=== PATIENT | female | born 1955 | race Caucasian/White ===

== ENCOUNTER → 2017-03-29 | Outpatient (CLI) | payer OTHER ==
[~2017-03-29] MED LIST: CALC1CRE2 TOP; CALC500C70 PO; DESO0.259 TD; DVN80 PO; FLAX OIL PO; HYG25 PO; MULT-513 PO; OMEP20TA PO; biotin PO
--- NOTE | 2017-03-29 16:21 | DIAGNOSTIC IMAGING REPORT ---
ULTRASOUND LEFT LOWER EXTREMITY VENOUS CLINICAL HISTORY: Left leg pain and swelling. COMPARISON STUDY: No priors. TECHNIQUE: Real-time, grayscale, and color Doppler sonography of the deep veins of the left lower extremity was performed from the inguinal crease to the calf. Compression and augmentation were utilized. FINDINGS: There is no sonographic evidence of deep venous thrombosis identified in the left lower extremity. The common femoral, superficial femoral, and popliteal veins are patent and normally compressible. The greater saphenous vein and the profunda femoris vein at the junction with the common femoral vein are clear. The visualized calf veins are patent. IMPRESSION: There is no sonographic evidence of deep venous thrombosis identified in the left lower extremity. Electronically signed by: Chaz Davison M.D. 03/29/2017 4:19 PM Dictated Date/Time: 03/29/2017 4:19 PM
== END | disposition home or self-care (01) ==
LOC: C.ULTRBC 15:37
DX: M79.662 Pain in left lower leg (principal); M79.89 Other specified soft tissue disorders

== ENCOUNTER → 2017-05-08 | Outpatient (CLI) | payer OTHER | END | disposition home or self-care (01) | LOC: C.CPL 13:52 | DX: S83.282D Other tear of lateral meniscus, current injury, left knee, subsequent encounter (principal); X58.XXXD Exposure to other specified factors, subsequent encounter ==

== ENCOUNTER → 2017-09-12 | Outpatient (CLI) | payer OTHER ==
[~2017-09-12] MED LIST changes: +APRE1TAB3 PO; +BIOT1TAB5 PO; +CALC-51 PO; -CALC1CRE2 TOP; -CALC500C70 PO; +DESO0.258 TOP; -DESO0.259 TD; +DILT90CA PO; -DVN80 PO; -FLAX OIL PO; +GLC/500 PO; +HYDR25TA4 PO; -HYG25 PO; +TRAM-10 PO; -biotin PO
--- NOTE | 2017-09-12 16:05 | DIAGNOSTIC IMAGING REPORT ---
CHEST 2 VIEWS ROUTINE CLINICAL HISTORY: PULMONARY DISEASE, HX OF CONGESTIVE HEART FAILURE PREOPERATIVE CHEST COMPARISON STUDY: No previous studies for comparison. FINDINGS: The cardiac and mediastinal contours are normal. There is no evidence of focal pulmonary consolidation. There is no evidence of failure. No pleural effusions are visualized.[ There is an area of presumed atelectasis/scarring at the right lung base. A 5 mm rounded opacity likely represents a vascular summation. Calcifications project over the superior margin the left scapula. IMPRESSION: 1. Focus of increased markings the right lung base likely atelectatic 2. 5 mm opacity at the right lung base, likely representing a vascular summation 3. No evidence of failure. No evidence of focal pulmonary consolidation. Electronically signed by: Bakari Norman M.D. 09/12/2017 4:03 PM Dictated Date/Time: 09/12/2017 4:02 PM
== END | disposition home or self-care (01) ==
LOC: C.RAD 15:44
DX: Z01.812 Encounter for preprocedural laboratory examination (principal); Z01.818 Encounter for other preprocedural examination; Z01.810 Encounter for preprocedural cardiovascular examination; R91.8 Other nonspecific abnormal finding of lung field

== ENCOUNTER 2017-10-05 06:08 | Inpatient (IN) | payer OTHER ==
[2017-09-11 14:08] VITALS: BMI 28.0
--- NOTE | 2017-09-11 14:44 | PAT Medication Instructions ---
Service Date Sep 11, 2017. Current Home Medication List Apremilast (Otezla), 1 TAB PO BID Biotin (Biotin), 1 TAB PO QAM Calcium Carbonate-Vitamin D (Calcium), 1 TAB PO BID Desoximetasone (Topicort), 1 APPLN TOP BID PRN for skin irritation Diltiazem Hcl (Diltiazem Hcl Er), 1 TAB PO QAM Hydrochlorothiazide (Hctz), 25 MG PO QAM Metformin Hcl (Glucophage), 500 MG PO BID Multivitamins/Minerals (Mvi With Minerals), 1 TAB PO QAM Omeprazole (Omeprazole), 20 MG PO DAILY PRN for Heartburn Tramadol (Ultram), 50 MG PO Q6 PRN for Pain Medication Instructions For Your Scheduled Surgery -Contact your prescriber for instructions for: Apremilast (Otezla), 1 TAB PO BID - Hold the following medications 24 hours prior to surgery: Desoximetasone (Topicort), 1 APPLN TOP BID PRN for skin irritation - Hold the following medications the morning of surgery: Biotin (Biotin), 1 TAB PO QAM Calcium Carbonate-Vitamin D (Calcium), 1 TAB PO BID Hydrochlorothiazide (Hctz), 25 MG PO QAM Metformin Hcl (Glucophage), 500 MG PO BID Multivitamins/Minerals (Mvi With Minerals), 1 TAB PO QAM - Take the following medications the morning of surgery with a sip of water: Diltiazem Hcl (Diltiazem Hcl Er), 1 TAB PO QAM Omeprazole (Omeprazole), 20 MG PO DAILY PRN for Heartburn (if needed) Tramadol (Ultram), 50 MG PO Q6 PRN for Pain (if needed, can be taken up to four hours before surgery) - Take the following medications as scheduled the night before surgery: Calcium Carbonate-Vitamin D (Calcium), 1 TAB PO BID If you have any questions please call us at [phone] or [phone] or [phone]
--- NOTE | 2017-09-29 15:00 | HISTORY & PHYSICAL EXAMINATION ---
DATE OF ADMISSION: 10/05/2017 CHIEF COMPLAINT: Left knee pain. HISTORY OF PRESENT ILLNESS: Ms. Mendoza is a 61-year-old female with a 6-month history of left knee pain. The patient had a fall which resulted in her increased pain. She has rating her pain a 10/10. She has pain with her daily activities. She has limited standing and walking tolerance. Pain is worse with weightbearing. The patient is ambulating with crutches. She has had prior arthroscopy. She has had injections, physical therapy, and Advil. She is now failing conservative treatment and would like to proceed with left knee replacement. PAST MEDICAL HISTORY: Hypertension, hyperlipidemia, diabetes with A1c of 8.1. She denies DVT or heart disease. PAST SURGICAL HISTORY: Tubal ligation, left knee arthroscopy, D&C and cataract extraction. SOCIAL HISTORY: The patient rarely drinks alcohol. She denies tobacco use. She lives in a single pedro home. 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 FAMILY HISTORY: Negative for DVT. MEDICATIONS: Hydrochlorothiazide 2 capsules daily, metformin 500 mg b.i.d., Topicort 0.05% gel, diltiazem 90 mg, and tramadol 50 mg. ALLERGIES: SULFA, PENICILLIN AND CLARITHROMYCIN. REVIEW OF SYSTEMS: See HPI. Ten other systems reviewed, all negative. PHYSICAL EXAMINATION: VITAL SIGNS: Height 5 feet 8 inches, weight 232 pounds, BMI 35. GENERAL: This is a well-developed, well-nourished female who is alert and oriented x3. Mood and affect are appropriate. HEENT: Normocephalic, atraumatic. Mucous membranes are moist and intact. NECK: Supple without lymphadenopathy. HEART: Regular rate and rhythm without murmurs, rubs or gallops. LUNGS: Clear to auscultation without wheezes or rhonchi. ABDOMEN: Soft and nontender. Bowel sounds are equal and active. EXTREMITIES: No ecchymosis, redness or warmth. She has varus deformity. Range of motion is from 0-110 degrees. She has no laxity. She is neurovascularly intact with +5/5 strength. X-RAY EXAMINATION: AP and lateral views show joint space narrowing and osteophyte formation. IMPRESSION: Posttraumatic degenerative joint disease, left knee. PLAN: The patient will be admitted for a left total knee arthroplasty. We will plan on aspirin for DVT prophylaxis. The patient has [employer] insurance. I recommend [facility] for home physical therapy, but it will depend on her insurance company.
[2017-10-05] VITALS (11 sets, daily range): BP systolic 116–153; BP diastolic 63–85; PULSE 68–80; TEMP 36.4–36.9; O2SAT 94–97; BMI 28.0
[~2017-10-05] VITALS: Ht 175.3 cm; Wt 85.9 kg
[~2017-10-05 06:08] MED LIST changes: +ACETAMINOPHEN 500 MG TAB PO SCH; +CEFAZOLIN 2000MG IV PUSH 15 ML IV SCH; +CLINDAMYCIN 600 MG/54 ML D5W 54 ML IV SCH; +DEXAMETHASONE 4 MG TAB PO SCH; +FAMOTIDINE 20 MG TAB PO SCH; +GABAPENTIN 600 MG PO SCH; +LACTATED RINGER'S 1000ML 1,000 ML IV SCH; +LACTATED RINGER'S 1000ML 500 ML IV SCH; +LINA1TAB PO; +METOCLOPRAMIDE HCL 10 MG TAB PO SCH; +ROPIVACAINE 5MG/ML 30 ML 150 MG, BUPIVACAINE 0.5% MPF INJ 30 ML, EpINEphrine HCL INJ 0.... INFIL SCH; +TRANEXAMIC ACID INJ 1,000 MG x 2 Bags IV SCH
[2017-10-05] MEDS ORDERED: BUPIVACAINE 0.25% 30 ML VIAL ONE (06:37)
[2017-10-05] MEDS ORDERED: BUPIVACAINE 0.5 % 5 MG/1 ML PF 10ML VIAL ONE (06:37)
[2017-10-05] MEDS ORDERED: MIDAZOLAM HCL 1 MG/ML 2ML VIAL ONE ×2 (06:41→07:54)
[2017-10-05] MEDS ORDERED: FENTANYL CITRATE INJ 50 MCG/1 ML 2 ML VIAL ONE (06:41)
[2017-10-05] MEDS ORDERED: PROPOFOL IV EMULSION 10 MG/ML 20 ML VIAL IV ONE ×2 (06:45→09:13)
--- NOTE | 2017-10-05 06:54 | History & Physical Bridge Note ---
H&P Re-Evaluation Bridge Note: I have examined the patient, reviewed the History & Physical and in the interval since the performance of the History & Physical I have noted the following changes of clinical significance: No changes noted
[2017-10-05] MEDS ORDERED: ORTHO JOINT ANESTHETIC ONE (07:09)
[2017-10-05] MEDS ORDERED: POVIDONE-IODINE OP SOLN 30 ML BTL ONE (07:09)
[2017-10-05] MEDS ORDERED: BACITRACIN 50000 UNIT VIAL ONE (07:09)
[2017-10-05] MEDS ORDERED: EpHEDrine SULFATE INJ 50 MG/ML AMP IV PRN (08:15)
[2017-10-05] MEDS ORDERED: KETOROLAC TROMETHAMINE 30 MG/ML VIAL IV. PRN (08:15)
[2017-10-05] MEDS ORDERED: ATROPINE SULFATE 0.1 MG/ML 5ML SYR IV PRN (08:15)
[2017-10-05] MEDS ORDERED: PHENYLEPHRINE 100MCG/ML 5ML SYR IV PRN (08:15)
[2017-10-05] MEDS ORDERED: ONDANSETRON INJ 2 MG/ML 2 ML VIAL IV PRN ×2 (08:15→10:00)
[2017-10-05] MEDS ORDERED: HYDROmorphone INJ 2 MG/ML SYR/VIAL IV PRN (08:15)
[2017-10-05] MEDS ORDERED: ONDANSETRON INJ 2 MG/ML 2 ML VIAL ONE (09:11)
--- NOTE | 2017-10-05 09:11 | [facility] Post Operative Brief Note ---
Immediate Operative Summary Operative Date Oct 05, 2017. Pre-Operative Diagnosis Post-traumatic degenerative joint disease, left knee Post-Operative Diagnosis Post-traumatic degenerative joint disease, left knee Procedure(s) Performed Left total knee arthroplasty, cemented; Left knee screw removal Surgeon Dr. Garber Biology Laboratory Assistant Surgeon(s) Surinder Dhillon PA-C Estimated Blood Loss 10cc Findings Consistent with Post-Op Diagnosis Specimens A: Left knee bone and tissue B: Removed hardware left knee Anesthesia Type MAC Spinal Regional Complication(s) none Disposition Accompanied Pt To Recover: no Disposition: Recovery Room / PACU
[2017-10-05] MEDS ORDERED: ALUMINUM/MAGNESIUM/SIMETH (MAALOX MAX) 30 ML UDC PO PRN (10:00)
[2017-10-05] MEDS ORDERED: HYDROmorphone INJ 0.5 MG/0.5 ML SYR IV PRN (10:00)
[2017-10-05] MEDS ORDERED: MAGNESIUM HYDROXIDE SUSP 30 ML UDC PO PRN (10:00)
[2017-10-05] MEDS ORDERED: TRAMADOL HCL 50 MG TAB PO PRN (10:00)
[2017-10-05] MEDS ORDERED: BISACODYL 10 MG SUPP PR PRN (10:00)
--- NOTE | 2017-10-05 10:16 | Anesthesiology Progress Note ---
Anesthesia Post Op Note Date & Time Oct 05, 2017 at 10:16 Vital Signs Pain Intensity: 0 Vital Signs Past 12 Hours Date Time Temp Pulse Resp B/P (MAP) Pulse Ox O2 Delivery O2 Flow Rate FiO2 10/05/17 10:10 75 22 115/65 94 Nasal Cannula 2 10/05/17 10:00 79 15 114/69 95 Nasal Cannula 2 10/05/17 09:51 36.4 90 16 98/66 96 Oxymask 10 10/05/17 06:51 36.9 78 18 152/85 97 Room Air Notes Mental Status: alert / awake / arousable, participated in evaluation Pt Amnestic to Procedure: Yes Nausea / Vomiting: adequately controlled Pain: adequately controlled Airway Patency, RR, SpO2: stable & adequate BP & HR: stable & adequate Hydration State: stable & adequate Anesthetic Complications: no major complications apparent
--- NOTE | 2017-10-05 10:24 | DIAGNOSTIC IMAGING REPORT ---
TWO VIEWS LEFT KNEE CLINICAL HISTORY: Postoperative examination. FINDINGS: AP and crosstable lateral portable views of the left knee are obtained. A left knee arthroplasty is in near anatomic alignment. There has been undersurface remodeling of the patella. No acute fracture is seen. There are expected postoperative changes around the knee including a surgical drain, soft tissue edema, and subcutaneous gas. IMPRESSION: Expected postoperative changes status post left knee arthroplasty. No acute fracture is seen. Electronically signed by: Chaz Davison M.D. 10/05/2017 10:23 AM Dictated Date/Time: 10/05/2017 10:22 AM
--- NOTE | 2017-10-05 10:38 | OPERATIVE REPORT ---
DATE OF OPERATION: 10/05/2017 PREOPERATIVE DIAGNOSIS: Osteoarthritis, left knee. POSTOPERATIVE DIAGNOSIS: Osteoarthritis, left knee. PROCEDURE: Left total knee arthroplasty. SURGEON: Henrique Garber MD SHEET CATCHER: KENRICK Julio ANESTHESIA: Spinal. COMPLICATIONS: None. OPERATION AND FINDINGS: Following induction of spinal anesthesia, the patient's left leg was prepped and draped in the usual sterile manner. Limb was exsanguinated with an Esmarch bandage and tourniquet was inflated to 350 mmHg. A longitudinal incision was made anteriorly. Subcutaneous tissue was sharply dissected. Electrocautery was used for hemostasis. Prepatellar bursa was incised and median parapatellar incision was performed. Patella was everted and the knee was flexed. Fat pad was removed to aid in visualization and the anterior and posterior cruciate ligaments were removed. The medial face of the tibia was cleared of soft tissue first with a Bovie and a Norman elevator. This tissue was retracted posteriorly using a blunt Hohmann. A Cerda retractor was used to expose the synovium above on the anterior aspect of the femur and this was removed down to bone. The PSI guide was placed on the distal femur and two pins were placed anteriorly and kept in position and two additional pins were placed distally and removed. The distal femoral cutting block was placed in position and the distal femoral cut was used in the +0 setting. Next, the cutting block was removed and the femoral 4 block was placed in the distal end of the femur. Care was taken to ensure appropriate external rotation and feeler gauge was used to ensure no notching would occur. The femoral block was centered on the distal femur and in the medial and lateral direction and was fixed using two bone screws. The gold pins were then removed. The oscillating saw was used to create the bone cuts and the distal femoral cutting block was removed and the reciprocating saw was used to further trim the femoral cuts as well as a deep in the area for the trochlear groove. Next, posterior condyle remnants were removed. Following this, a meniscal clamp and knife were utilized to remove the anterior portion of both medial and lateral meniscus. The proximal tibia PSI guide was placed into position and the proximal tibial cutting guide was screwed into position. The extra medullary alignment guide was utilized to ensure appropriate alignment. The proximal tibia was cut and the proximal tibial cutting block was removed and this bone fragment was removed. The appropriate guide was used to perform the notch cut on the distal femur and a lamina blower blast furnace and a cochlear knife were utilized to finish both medial and lateral meniscectomies to remove any remnants of the posterior or anterior cruciate ligaments. Following this, the distal femoral component was impacted into position and blunt Stan was used to sublux the tibia anteriorly. The proximal tibia was sized and a 4 tibial tray was chosen as the size to be used. This was put into position and appropriate external rotation and a double check with extramedullary alignment guide was performed. The canal for the tibial stem was prepared first with a 17 mm drill and then the punch and a mallet and the trial tibial poly was placed. A 11 was chosen the size to be used. It was brought to extension and the patella was prepared with the patellar reamer. A 36 component was chosen the size to be used. The trial component was placed and knee was taken through a full range of motion and there was found to be no lateral subluxation of the tibia. No lateral release was required. The trials were all removed. The final components were obtained and assembled. Cement was mixed. The knee was thoroughly irrigated and the ortho mix was injected about the knee joint. The final components were cemented into position. After thoroughly suctioning and drying the bone ends, all excess cement was removed. The knee was held in extension while the cement hardened. The wound was irrigated and closed over a Hemovac drain. #1 Vicryl was used to close the extensor mechanism. Subcutaneous tissues closed using 0 Dexon. Skin was closed with mukesh. Sterile dressing of Adaptic, 4 x 4's, sterile Webril, and Donny was applied. The patient tolerated the procedure well. Due to the complex nature of the procedure, the entire surgery was performed with the operational assistance of Surinder Dhillon PA-C. The judicial assistant, under direct supervision, was involved in the actual performance of all aspects of the surgical procedure including hemostasis, tissue retraction and incision, instrument management, patient positioning, and wound closure. During the procedure, both screws provided impedance and tibial placement. Both screws with washers were removed. I attest to the content of the Intraoperative Record and any orders documented therein. Any exception s are noted below.
[2017-10-05] MEDS ORDERED: GLUCAGON FOR INJ 1 MG VIAL SQ PRN (11:30)
[2017-10-05] MEDS ORDERED: GLUCOSE 40% GEL 15 GM TUBE PO PRN (11:30)
[2017-10-05] MEDS ORDERED: GLUCOSE 10 TABS/TUBE PO PRN (11:30)
[2017-10-05] MEDS ORDERED: DEXTROSE 50% 50 ML SYR IV PRN (11:30)
[2017-10-05] MEDS: SODIUM CHLORIDE 0.9% 1000ML 1,000 ML IV SCH ×2 (11:56→20:26)
[2017-10-05] MEDS ORDERED: PHARMACY GLYCEMIC MGMT CONSULT PRN (12:23)
[2017-10-05] MEDS ORDERED: INSULIN GLARGINE SOLOSTAR 100 UNITS/ML 3 ML PEN SC ONE (12:30)
[2017-10-05] MEDS ORDERED: [UNRECOGNIZED DRUG - CODE] PO (13:36)
[2017-10-05] MEDS: FERROUS GLUCONATE 324 MG TAB PO SCH ×2 (13:38→18:09)
[2017-10-05] MEDS: INSULIN ASPART 100 UNITS/ML 3 ML PEN SC SCH ×4 (13:47→23:58)
--- NOTE | 2017-10-05 14:12 | Pharmacy Progress Note ---
Glycemic Control Intl Consult Date of Service Oct 05, 2017. Scope Glycemic Pharmacist requested to be consulted by JACLYN Peters on 10/04 for glycemic control and to write orders per [facility] inpatient glycemic control protocol Objective Weight (Kilograms): 85.900 Accuchecks BSG (last 24hrs): Test 10/05/17 06:36 10/05/17 10:04 Bedside Glucose 204 mg/dl (70-90) 216 mg/dl (70-90) Recent Pertinent Medications Outpatient Anti-diabetic Regimen: * Tradjenta 5 mg qHS * Metformin 500 mg BID * A1c = 8.1 % date unknown - noted in H&P Risk Factors for Insulin Resistance: * Steroids: Decadron 8 mg po preop * Recent Surgery: POD #0 s/p L TKA * Diet: type 2 diabetes Assessment & Plan ASSESSMENT: * 61 y/o female with history of type 2 diabetes, fairly well controlled as per recent A1c * She is maintained on oral agents as an outpatient, which are typically held for admission and the use of SQ basal/bolus insulin is recommended * With preop Decadron (can SIGNIFICANTLY elevate BSGs) and baseline elevated BSG , will start the following on POD 0 * 1st basal dose to be full 24 hr dose based on insulin calc estimates using wt /stress of 2, then start BID dosing with a scale to provide additional if necessary * Novolog using CF/CR of patient's wt/stress of 3 PLAN FOR INPATIENT GLYCEMIC CONTROL: * Holding outpatient oral diabetes medications - consider resuming POD 1 or 2 depending on SCr/po intake * Basal insulin with LANTUS 30 units x 1 now, then as per following scale: * Hold for BSG < 140 * 10 units for BSG 140-180 * 20 units for BSG > 180 * Correctional Insulin with NOVOLOG per scale ACHS or Q6hrs while NPO + 0200 check * Goal Range: Low 110 mg/dL - High 140 mg/dL * Correction Factor: 20 mg/dL/unit * Nutritional / Prandial insulin per carb ratio of 1 unit per 6 grams CHO consumed * Please note that the plan above was derived based on current level of insulin resistance and hospital stress. These recommendations are appropriate for inpatient admission only. Plan of care upon discharge will need to be reassessed to avoid potential outpatient hypo/hyperglycemia. Thank you.
[2017-10-05] MEDS: ACETAMINOPHEN 500 MG TAB PO SCH ×2 (15:49→23:47)
[2017-10-05] MEDS: CLINDAMYCIN IV 600 MG in DEXTROSE 5% 50ML 50 ML IV SCH ×2 (15:51→23:48)
[2017-10-05] MEDS: TRAMADOL HCL 50 MG TAB PO PRN (17:16)
[2017-10-05] MEDS: OXYCODONE HCL IR 5 MG TAB (IMMEDIATE RELEASE) PO PRN ×2 (18:45→19:31)
[2017-10-05] MEDS ORDERED: INSULIN HUMAN REGULAR PER UNIT 5 UNITS in SYRINGE 9.9 ML IV STA (20:37)
[2017-10-05] MEDS: ASPIRIN 81 MG ECTAB PO SCH (20:57)
[2017-10-05] MEDS: SENNA 8.6 MG TAB PO SCH (20:57)
[2017-10-05] MEDS: DOCUSATE SODIUM 100 MG CAP PO SCH (20:57)
[2017-10-05] MEDS: INSULIN GLARGINE SOLOSTAR 100 UNITS/ML 3 ML PEN SC SCH (21:03)
[2017-10-06] MEDS: OXYCODONE HCL IR 5 MG TAB (IMMEDIATE RELEASE) PO PRN ×6 (01:22→22:29)
[2017-10-06] MEDS ORDERED: INSULIN ASPART 100 UNITS/ML 3 ML PEN SC ONE (02:00)
[2017-10-06 03:49] VITALS: BP 145/78; PULSE 78; TEMP 36.6; O2SAT 94
[2017-10-06] MEDS: INSULIN ASPART 100 UNITS/ML 3 ML PEN SC SCH ×5 (03:59→21:30)
[2017-10-06] MEDS: SODIUM CHLORIDE 0.9% 1000ML 1,000 ML IV SCH (05:47)
[2017-10-06 06:57] LABS: HEMATOCRIT 32.6 % (37-47); HEMOGLOBIN 11.1 g/dL (12.0-16.0); MEAN CELL VOLUME 85.8 fL (80-100); MEAN CORPUSCULAR HEMOGLOBIN 29.2 pg (25-34); MEAN PLATELET VOLUME 9.4 fL (7.4-10.4); PLATELET COUNT 236 K/uL (130-400); RED CELL DISTRIBUTION WIDTH CV 13.4 % (11.5-14.5); RED CELL DISTRIBUTION WIDTH SD 42.3 fL (36.4-46.3); WHITE BLOOD COUNT 13.58 K/uL (4.8-10.8)
[2017-10-06 07:20] VITALS: BP 152/96; PULSE 78; TEMP 36.4; O2SAT 92
[2017-10-06 07:24] LABS: CREATININE 0.78 mg/dl (0.60-1.20); POTASSIUM 3.7 mmol/L (3.5-5.1)
--- NOTE | 2017-10-06 07:59 | Anesthesiology Progress Note ---
Anesthesia Post Op Note Date & Time Oct 06, 2017 at 07:58 Vital Signs Pain Intensity: 3.0 Vital Signs Past 12 Hours Date Time Temp Pulse Resp B/P (MAP) Pulse Ox O2 Delivery O2 Flow Rate FiO2 10/06/17 07:20 36.4 78 18 152/96 (114) 92 Room Air 10/06/17 03:49 36.6 78 16 145/78 (100) 94 Room Air 10/06/17 00:00 Room Air 10/05/17 23:55 36.7 78 18 153/81 (105) 94 Room Air Notes Mental Status: alert / awake / arousable, participated in evaluation Pt Amnestic to Procedure: Yes Nausea / Vomiting: adequately controlled Pain: adequately controlled Airway Patency, RR, SpO2: stable & adequate BP & HR: stable & adequate Hydration State: stable & adequate Neuraxial Anesthesia: was administered, sensory block resolved Anesthetic Complications: no major complications apparent
--- NOTE | 2017-10-06 08:10 | Orthopedic Progress Note ---
Orthopedic Progress Note Date of Service Oct 06, 2017. Subjective Post OP Day: 1 Reports: feeling well Objective N/V intact, dressing C/D/I (Hemovac in place), toes mobile Date Time Temp Pulse Resp B/P (MAP) Pulse Ox O2 Delivery O2 Flow Rate FiO2 10/06/17 07:20 36.4 78 18 152/96 (114) 92 Room Air 10/06/17 03:49 36.6 78 16 145/78 (100) 94 Room Air 10/06/17 00:00 Room Air 10/05/17 23:55 36.7 78 18 153/81 (105) 94 Room Air 10/05/17 19:03 36.4 74 18 138/82 (100) 96 Room Air 10/05/17 15:40 Room Air 10/05/17 15:05 36.4 80 18 142/84 (103) 97 Nasal Cannula 3.0 10/05/17 13:51 73 12 128/72 (90) 97 Nasal Cannula 3.0 10/05/17 12:53 78 16 133/80 (97) 97 Nasal Cannula 2.0 10/05/17 11:54 68 12 119/78 (92) 96 Nasal Cannula 3.0 10/05/17 11:25 71 18 119/77 (91) 97 Nasal Cannula 2.0 10/05/17 10:56 94 Nasal Cannula 3.0 10/05/17 10:55 94 Nasal Cannula 3.0 10/05/17 10:52 36.8 72 14 116/63 (80) 94 Nasal Cannula 3.0 10/05/17 10:30 36.4 69 12 119/73 97 Nasal Cannula 2 10/05/17 10:20 71 16 112/69 95 Nasal Cannula 2 10/05/17 10:10 75 22 115/65 94 Nasal Cannula 2 10/05/17 10:00 79 15 114/69 95 Nasal Cannula 2 10/05/17 09:51 36.4 90 16 98/66 96 Oxymask 10 Laboratory Results 24 Hours: Test 10/06/17 06:45 Hematocrit 32.6 % Hemoglobin 11.1 g/dL Assessment & Plan Assessment: 61 yo female stable POD #1 s/p left TKA Plan: 1. Med management 2. DVT prophylaxis- ASA, SCDs 3. PT/OT 4. D/C planning- home w/ HH vs OPPT
[2017-10-06] MEDS: DILTIAZEM HCL 30 MG TAB PO SCH (08:40)
[2017-10-06] MEDS: TRAMADOL HCL 50 MG TAB PO PRN ×2 (08:40→21:30)
[2017-10-06] MEDS: FERROUS GLUCONATE 324 MG TAB PO SCH ×3 (08:41→18:21)
[2017-10-06] MEDS: DOCUSATE SODIUM 100 MG CAP PO SCH ×2 (08:41→21:31)
[2017-10-06] MEDS: HYDROCHLOROTHIAZIDE 25 MG TAB PO SCH (08:41)
[2017-10-06] MEDS: PANTOprazole SOD 40 MG TAB PO SCH (08:41)
[2017-10-06] MEDS: CEROVITE ADV FORMULA TAB PO SCH (08:41)
[2017-10-06] MEDS: MULTIVITAMIN TAB PO SCH (08:42)
[2017-10-06] MEDS: ASPIRIN 81 MG ECTAB PO SCH ×2 (08:42→21:31)
[2017-10-06] MEDS: ACETAMINOPHEN 500 MG TAB PO SCH ×2 (08:42→15:38)
[2017-10-06] MEDS: INSULIN GLARGINE SOLOSTAR 100 UNITS/ML 3 ML PEN SC SCH ×2 (08:50→21:29)
[2017-10-06] MEDS ORDERED: INSULIN GLARGINE SOLOSTAR 100 UNITS/ML 3 ML PEN SC ONE (11:00)
[2017-10-06 11:51] VITALS: BP 106/68; PULSE 62; TEMP 36.3; O2SAT 94
--- NOTE | 2017-10-06 14:29 | Pharmacy Progress Note ---
Pharmacy Glycemic Short Note 2 Date of Service Oct 06, 2017. OUTPATIENT ANTIDIABETIC REGIMEN: * Tradjenta 5 mg qHS * Metformin 500 mg BID * A1c = 8.1 % date unknown - noted in H&P ASSESSMENT: * 61 yr old T2DM female POD #1 s/p L-TKA. * Patient experienced post-op hyperglycemia likely due to stress of surgery and administration of dexamethasone pre-op. * Patient received 90 units of insulin on 10/06 * Fasting BSG of 160 mg/dL is above goal, therefore an additional dose of 10 units of Lantus was ordered for this morning. I anticipate patient needed about 15 units BID moving forward. * Post prandial BSGs are elevated. I anticipate improvement since steroid effect should be wearing off at this time, therefore I will only make a slight change to car ratio. PLAN FOR INPATIENT GLYCEMIC CONTROL: * Resume metformin starting with dinner today * Basal insulin * Lantus 0-10-15 units SQ BID * 10 units for BSG 120- 180, 15 units for BSG > 180 * Bolus insulin * NovoLog per scale ACHS or Q6hrs while NPO * Goal Range: Low 110 mg/dL - High 140 mg/dL * Correction Factor: 20 mg/dL/unit * Nutritional / Prandial insulin per carb ratio of 1 unit per 5 grams CHO consumed PLAN FOR DISCHARGE: * HbA1c 8.1 % per H&P * Recommend maximizing metformin dose (currently 500 mg PO BID) * may increase by 500 mg per week as tolerated to goal of 2000 mg PO BID * administer with food to limit GI upset
[2017-10-06 15:03] VITALS: Ht 175.3 cm; Wt 85.9 kg
[2017-10-06 15:21] VITALS: BP 149/88; PULSE 81; TEMP 36.6; O2SAT 94
[2017-10-06] MEDS: METFORMIN HCL 500 MG TAB PO SCH (18:21)
[2017-10-06] MEDS: SENNA 8.6 MG TAB PO SCH (21:32)
[2017-10-06 23:16] VITALS: BP_SYST 160; BP_SYST 173; BP_DIAS 82; BP_DIAS 96; PULSE 75; TEMP 36.8; O2SAT 98
[2017-10-07] VITALS: BP 166/76; PULSE 77
[2017-10-07] MEDS: ACETAMINOPHEN 500 MG TAB PO SCH ×2 (00:36→07:30)
[2017-10-07] MEDS: TRAMADOL HCL 50 MG TAB PO PRN ×3 (01:39→14:08)
[2017-10-07] MEDS: OXYCODONE HCL IR 5 MG TAB (IMMEDIATE RELEASE) PO PRN ×2 (04:31→11:33)
[2017-10-07] MEDS: PANTOprazole SOD 40 MG TAB PO SCH (07:30)
[2017-10-07] MEDS: HYDROCHLOROTHIAZIDE 25 MG TAB PO SCH (07:31)
[2017-10-07] MEDS: ASPIRIN 81 MG ECTAB PO SCH (07:31)
[2017-10-07] MEDS: FERROUS GLUCONATE 324 MG TAB PO SCH ×2 (07:32→12:51)
[2017-10-07] MEDS: DOCUSATE SODIUM 100 MG CAP PO SCH (07:32)
[2017-10-07] MEDS: CEROVITE ADV FORMULA TAB PO SCH (07:32)
[2017-10-07] MEDS: MULTIVITAMIN TAB PO SCH (07:32)
[2017-10-07] MEDS: DILTIAZEM HCL 30 MG TAB PO SCH (07:32)
[2017-10-07] MEDS: METFORMIN HCL 500 MG TAB PO SCH (07:32)
[2017-10-07] MEDS: INSULIN GLARGINE SOLOSTAR 100 UNITS/ML 3 ML PEN SC SCH (07:33)
[2017-10-07 07:35] VITALS: BP 165/98; PULSE 89; TEMP 36.8; O2SAT 95
[2017-10-07] MEDS: INSULIN ASPART 100 UNITS/ML 3 ML PEN SC SCH ×2 (07:37→12:54)
--- NOTE | 2017-10-07 11:19 | Orthopedic Progress Note ---
Orthopedic Progress Note Date of Service Oct 07, 2017. Subjective Post OP Day: 2 Reports: feeling well, Denies: complaints, chest pain, SOB, nausea / vomiting, light headedness Objective calves soft nontender, N/V intact, dressing C/D/I Date Time Temp Pulse Resp B/P (MAP) Pulse Ox O2 Delivery O2 Flow Rate FiO2 10/07/17 07:35 36.8 89 18 165/98 (120) 95 Room Air 10/07/17 07:30 Room Air 10/07/17 00:00 Room Air 10/07/17 00:00 77 166/76 (106) 10/06/17 23:16 36.8 75 18 173/96 (121) 98 Room Air 160/82 (108) 10/06/17 15:29 Room Air 10/06/17 15:21 36.6 81 18 149/88 (108) 94 Room Air 10/06/17 11:51 36.3 62 18 106/68 (81) 94 Room Air Assessment & Plan Assessment: 61 yo female stable POD #2 s/p left TKA Plan: 1. Med management 2. DVT prophylaxis- ASA, SCDs 3. PT/OT 4. D/C planning- home w/ HH vs OPPT She is doing well. We should be able to DC her today.
[2017-10-07 14:13] VITALS: BP 165/98; PULSE 89; TEMP 36.8; O2SAT 95
[2017-10-07] MEDS ORDERED: ACET-24 PO (14:19)
[2017-10-07] MEDS ORDERED: RXC5 PO (14:19)
[2017-10-07] MEDS ORDERED: ONDA8TAB12 PO (14:19)
[2017-10-07] MEDS ORDERED: ASPI-320 PO (14:19)
[2017-10-07] MEDS ORDERED: CLC100 PO (14:19)
--- NOTE | 2017-10-07 14:20 | Discharge Instructions ---
Discharge Instructions Date of Service Oct 07, 2017. Admission Reason for Admission: Left Knee Osteoarthritis, Retained Hardware Discharge Discharge Diagnosis / Problem: left total knee replacement Discharge Goals Goal(s): Decrease discomfort, Improve function, Increase independence Activity Recommendations Activity Limitations: as noted below Weightbearing Status: Left weightbearing (as tolerated) . Instructions / Follow-Up Instructions / Follow-Up ACTIVITY RECOMMENDATIONS: SELF CARE INSTRUCTIONS AFTER TOTAL KNEE REPLACEMENT A. You may need to continue a physical therapy program after discharge from the hospital. There are several options available to you. Your doctor will assist you in selecting the best one for you. 1. An out-patient facility 2 to 3 times a week for therapy or home therapy. 2. Continue working on all exercises taught to you in the hospital. Your goals should be to increase bending of your knee to 90 degrees and beyond and to fully straighten your knee. B. You may progress at your own pace from walking with a walker or crutches to a cane; then to no assistive devices. C. Make walking a part of your daily routine. Be up as much as comfortable with rest periods throughout the day. Rest with leg elevation is very important. Use the ice wrap frequently for the first 3-4 weeks. D. There are no restrictions on activities. You may ride in a car, shop, participate in ocular pathologist and all social activities. E. Wear the long elastic stockings (ISABEL hose) 20 hours a day for 2 weeks after surgery. They can be removed several times a day for laundering and for a bath. F. You may shower, no tub baths until cleared by your doctor. SPECIAL CARE INSTRUCTIONS: VERY IMPORTANT TO READ AND REVIEW A. There are a few signs you need to watch for after you are home. Call [facility] if you notice any of the followin. Increased severe knee pain. Some pain is expected especially when you exercise. 2. Increased swelling in your leg or knee; pain or swelling of the calf muscle in either lower leg. 3. Any fluid drainage from the incision. 4. Shortness of breath or chest pain. B. Please call [facility] at if you have any concerns or questions about your operation or recovery. The doctor or his nurse will return your call promptly. C. You must take antibiotics before dental work, bladder, bowel or other surgery. Your doctor will provide you with a permanent care to carry describing this precaution. IMPORTANT: * REMEMBER TO TAKE ASPIRIN, 81 MG, TWICE DAILY FOR 4 WEEKS UNLESS OTHERWISE DIRECTED. THIS IS YOUR BLOOD THINNER. * HIGH RISK PATIENTS MAY BE PRESCRIBED A STRONGER BLOOD THINNER. THIS WILL BE PROVIDED AT DISCHARGE. * CALL IF INCREASED PAIN, REDNESS, DRAINAGE OR FEVER GREATER THAT 101. * WEAR ISABEL HOSE 20 HOURS PER DAY FOR 2 WEEKS. * YOU MAY HAVE A LARGE BAND-AID LIKE DRESSING (SILVERON). THIS WILL REMAIN ON YOUR INCISION FOR 7 DAYS, THEN CAN BE REMOVED. IF INCISION IS LEAKING THROUGH DRESSING, CALL THE OFFICE . Zip Skin Closure You may have a Zipline Closure System. As noted below, this keeps your incision closed. Change the dressing daily. Keep the wound covered with a dressing as it has the potential to snag on your clothing. The Zipline will remain on for a total of 2 weeks. Do not remove it! You will be given instructions by nursing staff at the time of discharge to care for your Zip Closure System. This devices uses plastic straps to keep your incision closed and protected throughout your recovery. If you have any questions please refer to these instructions first. FOLLOW UP VISIT: If appointment is not already scheduled: Please call [facility] to make a follow-up appointment for 2 weeks after your surgery at . Current Hospital Diet Patient's current hospital diet: Diabetes Type 2 Diet Discharge Diet Recommended Diet: Diabetes Type 2 Diet Procedures Procedures Performed: Left total knee arthroplasty, cemented; Left knee screw removal Pending Studies Studies pending at discharge: no Medical Emergencies . Who to Call and When: Medical Emergencies: If at any time you feel your situation is an emergency, please call 911 immediately. . Non-Emergent Contact Non-Emergency issues call your: Primary Care Provider, Surgeon . "Provider Documentation" section prepared by Angelo Lyman. . [place] Drug Monitoring Program Search Results: patient reviewed within database, no issues identified
--- NOTE | 2017-10-09 16:21 | DISCHARGE SUMMARY ---
DISCHARGE DIAGNOSIS: Degenerative joint disease, left knee. SECONDARY DIAGNOSES: Hypertension, hyperlipidemia, diabetes mellitus. CONSULTS: None. COMPLICATIONS: None. PROCEDURES: Left total knee arthroplasty performed by Dr. Garber on 10/05/2017. BRIEF HISTORY: As dictated in the history and physical. HOSPITAL SUMMARY: The patient was admitted on the above date and had the above noted surgery performed which she tolerated well. On the first postoperative day, she was feeling well and had no complaints, neurovascular was intact. Dressing was clean, dry, and intact. Toes were mobile. Vital signs were stable. She was afebrile, and hemoglobin was 11.1. She was started on physiotherapy protocol and continued on DVT prophylaxis and pain management. Was planning for outpatient PT. By her second postoperative day, she was feeling well and had no complaints. Calves were soft and nontender. Neurovascular intact. Dressings were clean, dry, and intact. Vital signs were stable, and she was afebrile. She was progressing with physical therapy and was felt she could be discharged to home. For further review, please see chart. Lab and x-ray data as per chart. DISCHARGE INSTRUCTIONS: Patient was discharged to home in satisfactory condition on 10/07/2017. DIET: Diabetic. ACTIVITY: Follow TKA instruction sheets and special care instructions. Weightbearing as tolerated, left lower extremity. Follow up with Dr. Garber in 2 weeks. Patient to call for appointment if one has not been made for you. DISCHARGE MEDICATIONS: Acetaminophen 1000 mg p.o. q.8 h., aspirin 81 mg p.o. b.i.d. for 30 days, Colace 100 mg p.o. b.i.d. for 10 days, Zofran 8 mg p.o. q.8 h. p.r.n. nausea, oxycodone 5-10 mg p.o. q.4 h. p.r.n. pain and resume home meds as listed.
== END 2017-10-07 14:50 | disposition home health service (06) | DRG 470 ==
LOC: C.ACU 06:08 → C.MSN 10:02 → ENRESERV 10:30
PROC: 0SRD0J9 Replacement of Left Knee Joint with Synthetic Substitute, Cemented, Open Approach (ICD-10-PCS; principal; 2017-10-05 08:15)
PROC: 0SPD04Z Removal of Internal Fixation Device from Left Knee Joint, Open Approach (ICD-10-PCS; principal; 2017-10-05 08:15)
DX: M17.32 Unilateral post-traumatic osteoarthritis, left knee (principal); I10 Essential (primary) hypertension; E78.5 Hyperlipidemia, unspecified; E11.9 Type 2 diabetes mellitus without complications; Z98.51 Tubal ligation status; Z98.49 Cataract extraction status, unspecified eye; Z88.2 Allergy status to sulfonamides; Z88.0 Allergy status to penicillin; Z88.1 Allergy status to other antibiotic agents

== ENCOUNTER 2022-04-16 12:05 | Observation (INO) ==
[2022-04-16 13:16] LABS: Basophils # (auto) 0.03 K/uL (0-0.2); Basophils % (auto) 0.2 %; Eosinophils # (auto) 0.05 K/uL (0-0.50); Eosinophils % (auto) 0.4 %; Hematocrit (blood only) 39.1 % (34.1-44.9); Hemoglobin 13.7 g/dl (12.0-16.0); Immature Granulocytes # (auto) 0.05 K/uL (0.00-0.02); Immature Granulocytes % (auto) 0.4 %; Lymphocytes # (auto) 0.79 K/uL (1.2-3.4); Lymphocytes % (auto) 5.7 %; Mean Corpuscular Hemoglobin 29.8 pg (25.0-34.0); Mean Corpuscular Volume 85.2 fL (80.0-100.0); Mean Platelet Volume 9.9 fL (9.4-12.3); Monocytes # (auto) 0.81 K/uL (0.24-0.82); Monocytes % (auto) 5.8 %; Neutrophils # (auto) 12.19 K/uL (1.4-6.5); Neutrophils % (auto) 87.5 %; Platelet Count 326 K/uL (130-400); RDW Coefficient of Variation 13.4 % (11.5-14.5); RDW Standard Deviation 41.7 fL (36.4-46.3); Red Blood Count 4.59 M/uL (3.93-5.22); White Blood Count 13.92 K/ul (4.8-10.8)
[2022-04-16 13:43] LABS: Alanine Aminotransferase 14 U/L (7-52); Albumin Globulin Ratio 1.1 (0.9-2); Albumin Level 3.9 gm/dl (3.4-5.0); Alkaline Phosphatase 84 U/L (34-104); Anion Gap 10 (3-11); Aspartate Aminotransferase 11 U/L (13-39); Bilirubin,Total 0.5 mg/dl (0.2-1.0); Blood Urea Nitrogen 15 mg/dl (6-23); Calcium 9.3 mg/dl (8.5-10.1); Carbon Dioxide 25 mmol/L (21-32); Chloride 101 mmol/L (98-107); Est GFR (African American) 110.9 ml/min; Est GFR (Non-African American) 95.7 ml/min; Globulin 3.7 gm/dl (2.5-4.0); Glucose 163 mg/dl (70-99(Fasting)); Lipase 29 U/L (11-82); Potassium 3.5 mmol/L (3.5-5.1); Sodium 136 mmol/L (136-145); Total Protein 7.6 gm/dl (6.0-8.3)
--- NOTE | 2022-04-16 14:11 | CT Scan Report ---
CT abd pelvis wo con CLINICAL HISTORY: rt sided abd pain TECHNIQUE: Helical axial images of the abdomen and pelvis were obtained. Automated dose lowering tech niques and/or adjustment according to patient size were utilized for this exam. This exam was perfor med without intravenous contrast. CT DOSE: 678.37 mGy.cm COMPARISON: None available at the time of this dictation. FINDINGS: Lower chest: Bibasilar atelectasis versus scarring is seen. Liver: Unremarkable. No focal lesions are seen. Gallbladder and biliary tree: Patient is status post cholecystectomy. No intra- or extrahepatic bilia ry ductal dilation. Pancreas: Unremarkable, no focal lesions. Spleen: Unremarkable. Adrenals: Unremarkable. Kidneys and ureters: A left renal cyst is seen. Nonobstructive nephrolithiasis is seen. Bladder: Unremarkable. Reproductive organs: Unremarkable. Bowel: Appendiceal thickening and fat stranding is seen. The appendix measures 11 mm in diameter and there is an appendicolith.. No free air or abscess is seen. Diverticulosis is seen without diverticul itis. Lymph nodes Retroperitoneal: Unremarkable. Pelvic: Unremarkable. Mesenteric: Unremarkable. Peritoneum: Fat stranding is seen in the right lower quadrant. No pneumoperitoneum is seen. Vessels: Atherosclerotic calcifications are seen. Abdominal wall: Unremarkable. Bones: A right hip total arthroplasty is seen. Degenerative changes are seen in the spine. Anterior w edge deformity in the L1 vertebral body is likely chronic. IMPRESSION: Acute appendicitis without evidence of perforation or abscess. ACT 112: Negative or not required by law. Electronically signed by: Nabil Hairston M.D. 04/16/2022 2:09 PM
[2022-04-16] MEDS ORDERED: HYDROmorphone INJ 0.5 MG/0.5 ML SYR IV STA (14:23)
--- NOTE | 2022-04-16 15:00 | Emergency Department Note ---
History of Present Illness General Chief complaint: Abdominal Pain Stated complaint: ABD PAIN,NAUSEA Time Seen by Provider: 04/16/22 13:06 History of Present Illness Maximum Pain Intensity: 10 66-year-old female presents to the ED with a chief complaint of lower abdominal pain. The patient states that it started on the left side around 9 PM last night. She states that it has moved towards the right side as well.She has been nauseated all day. She only ate 2 crackers at 9 AM this morning. Denies any vomiting. No other complaints. Home Medications Medication Instructions Recorded Confirmed Type apremilast 30 mg tablet (Otezla) 30 mg PO BID 04/17/18 04/22/18 History biotin 1,000 mcg chewable tablet 1,000 mcg PO DAILY 04/17/18 04/22/18 History calcium carbonate 500 mg-vitamin 1 tab PO BID 04/17/18 04/22/18 History D3 10 mcg (400 unit) tablet (Calcium 500 With D) chlorthalidone 25 mg tablet 25 mg PO DAILY 04/17/18 04/22/18 History flaxseed oil 1,000 mg capsule 1,000 mg PO DAILY 04/17/18 04/22/18 History linagliptin 5 mg tablet 5 mg PO DAILY 04/17/18 04/22/18 History metformin 500 mg tablet 500 mg PO BID 04/17/18 04/22/18 History multivitamin 1 tab PO DAILY 04/17/18 04/22/18 History Allergies Allergy/AdvReac Type Severity Reaction Status Date / Time clarithromycin Allergy Intermediate RASH, Verified 04/22/18 17:01 TREMORS, SHAKINESS Egg Derived Allergy Intermediate Rash Verified 04/22/18 13:23 atenolol Allergy Unknown cp Verified 04/22/18 13:23 elevated bp muscles contract/spasm valsartan Allergy Unknown unable to Verified 04/22/18 13:23 stand,bad headache diphenhydramine AdvReac Intermediate ANTIHISTAMINES Verified 04/22/18 13:23 - ELEVATE BP morphine AdvReac Intermediate LOW BP, Verified 04/22/18 13:23 "CARDIAC PROBLEMS" Sulfa (Sulfonamide AdvReac Intermediate hypertension, Verified 04/22/18 17:01 Antibiotics) shakiness Penicillins AdvReac Mild STIFF Verified 04/22/18 13:23 NECK, SEVERE NAUSEA Past Med/Surg History Medical History CVA (cerebral vascular accident) Diabetes DM type 2 (diabetes mellitus, type 2) Dyslipidemia Hyperlipidemia Hypertension Hypertension Psoriasis Surgical History H/O sinus surgery H/O tubal ligation History of cholecystectomy History of total left knee replacement History of total right hip replacement Family History Mother Breast cancer Diabetes Social History Smoking Status: Never smoker Hx Alcohol Use: Yes Alcohol type: wine and hard liquor Hx Substance Use: No Preferred Language: Upper Sorbian Communication Ability: Effective Visual Impairment: No Limitations Manufacturing Technology Professor Required: No Beliefs That Will Affect Care: None marital status: Current Living Situation: Spouse Feels Safe at Home: Yes Assistive Devices: None Review of Systems A total of 10 systems reviewed and were otherwise negative Physical Exam Vital Signs Vital Signs - 24 hr 04/16/22 12:15 Temperature 37.0 C Temperature Source Oral Pulse Rate 96 H Pulse Rhythm Regular Pulse Strength Normal Respiratory Rate 16 Respiratory Effort / Characteristics Non-Labored Spontaneous Respiratory Depth Normal Respiratory Pattern Regular Blood Pressure 129/83 Blood Pressure Mean 98 Blood Pressure Position Sitting Pulse Oximetry 96 Oxygen Delivery Method Room Air Sepsis Recent Fever Within 48 Hours No Sepsis New/Unexplained Change in Mental Status No Sepsis Action Taken by Nursing No Action Required CONSTITUTIONAL/VITAL SIGNS: Reviewed / noted above. GENERAL: Non-toxic in appearance. INTEGUMENTARY: Warm, dry, and [place]. HEAD: Normocephalic. EYES: without scleral icterus or trauma. ENT/OROPHARYNX: clear and moist. LYMPHADENOPATHY/NECK: Is supple without lymphadenopathy or meningismus. RESPIRATORY: Clear to auscultation bilaterally. No increased work of breathing. CARDIOVASCULAR: Regular rate and rhythm. GI/ABDOMEN: Soft and tender diffusely in the lower abdomen.. No organomegaly or pulsatile mass. EXTREMITIES: Warm and well perfused. BACK: No CVA tenderness. NEUROLOGICAL: Intact without focal deficits. PSYCHIATRIC: normal affect. MUSCULOSKELETAL: Normally developed with good muscle tone. TRIAGE NURSING DOCUMENTATION REVIEWED. Course Administered Medications Discontinued Medications Hydromorphone HCl (Hydromorphone Inj 0.5 Mg/0.5 Ml Syr) 0.5 mg IV NOW STA Stop: 04/16/22 14:24 Last Admin: 04/16/22 14:37 Dose: 0.5 mg Documented By: [id number] Medical Decision Making Differential Diagnosis Differential considered: pancreatitis, hepatitis, acute cholecystitis, AAA, UTI, pyelonephritis, kidney stones, appendicitis, diverticulitis, shingles, bowel obstruction, mesenteric ischemia, intussusception,hernia, Medical Records Attestation: I reviewed the patient's medical records. Home Medications Current Medication List: was personally reviewed by me Laboratory Data Attestation: I reviewed the patient's lab results. Result diagrams: 04/16/22 12:28 04/16/22 12:28 Lab Results 04/16/22 04/16/22 Range/Units 12: 12:28 WBC 13.92 H (4.8-10.8) K/ul RBC 4.59 (3.93-5.22) M/uL Hgb 13.7 (12.0-16.0) g/dl Hct 39.1 (34.1-44.9) % MCV 85.2 (80.0-100.0) fL MCH 29.8 (25.0-34.0) pg MCHC 35.0 (32.0-36.0) g/dL RDW Std Deviation 41.7 (36.4-46.3) fL RDW Coeff of William 13.4 (11.5-14.5) % Plt Count 326 (130-400) K/uL MPV 9.9 (9.4-12.3) fL Immature Gran % (Auto) 0.4 % Neut % (Auto) 87.5 % Lymph % (Auto) 5.7 % [place] % (Auto) 5.8 % Eos % (Auto) 0.4 % Baso % (Auto) 0.2 % Neut # (Auto) 12.19 H (1.4-6.5) K/uL Lymph # (Auto) 0.79 L (1.2-3.4) K/uL Woodward # (Auto) 0.81 (0.24-0.82) K/uL Eos # (Auto) 0.05 (0-0.50) K/uL Baso # (Auto) 0.03 (0-0.2) K/uL Immature Gran # (Auto) 0.05 H (0.00-0.02) K/uL Sodium 136 (136-145) mmol/L Potassium 3.5 (3.5-5.1) mmol/L Chloride 101 (98-107) mmol/L Carbon Dioxide 25 (21-32) mmol/L Anion Gap 10 (3-11) BUN 15 (6-23) mg/dl Creatinine 0.60 (0.6-1.2) mg/dl Est Cr Clr Drug Dosing Not Reportable Est GFR ( Amer) 110.9 ml/min Est GFR (Non-Af Amer) 95.7 ml/min BUN/Creatinine Ratio 25.0 H (10-20) Glucose 163 H (70-99(Fasting)) mg/dl Calcium 9.3 (8.5-10.1) mg/dl Total Bilirubin 0.5 (0.2-1.0) mg/dl AST 11 L (13-39) U/L ALT 14 (7-52) U/L Alkaline Phosphatase 84 (34-104) U/L Total Protein 7.6 (6.0-8.3) gm/dl Albumin 3.9 (3.4-5.0) gm/dl Globulin 3.7 (2.5-4.0) gm/dl Albumin/Globulin Ratio 1.1 (0.9-2) Lipase 29 (11-82) U/L Imaging Data Radiologist's Impression: Abdomen/Pelvis CT 04/16/22 13:04 CT abd pelvis wo con CLINICAL HISTORY: rt sided abd pain TECHNIQUE: Helical axial images of the abdomen and pelvis were obtained. Automated dose lowering techniques and/or adjustment according to patient size were utilized for this exam. This exam was performed without intravenous contrast. CT DOSE: 678.37 mGy.cm COMPARISON: None available at the time of this dictation. FINDINGS: Lower chest: Bibasilar atelectasis versus scarring is seen. Liver: Unremarkable. No focal lesions are seen. Gallbladder and biliary tree: Patient is status post cholecystectomy. No intra- or extrahepatic biliary ductal dilation. Pancreas: Unremarkable, no focal lesions. Spleen: Unremarkable. Adrenals: Unremarkable. Kidneys and ureters: A left renal cyst is seen. Nonobstructive nephrolithiasis is seen. Bladder: Unremarkable. Reproductive organs: Unremarkable. Bowel: Appendiceal thickening and fat stranding is seen. The appendix measures 11 mm in diameter and there is an appendicolith.. No free air or abscess is seen. Diverticulosis is seen without diverticulitis. Lymph nodes Retroperitoneal: Unremarkable. Pelvic: Unremarkable. Mesenteric: Unremarkable. Peritoneum: Fat stranding is seen in the right lower quadrant. No pneumoperitoneum is seen. Vessels: Atherosclerotic calcifications are seen. Abdominal wall: Unremarkable. Bones: A right hip total arthroplasty is seen. Degenerative changes are seen in the spine. Anterior wedge deformity in the L1 vertebral body is likely chronic. IMPRESSION: Acute appendicitis without evidence of perforation or abscess. ACT 112: Negative or not required by law. Electronically signed by: Nabil Hairston M.D. 04/16/2022 2:09 PM MDM Narrative 66-year-old female presents with abdominal pain starting last night around [address] scan today shows a findings suggesting acute appendicitis. White count is mildly elevated. Chemistry panel was unremarkable. The patient will be seen by Dr. Saldaña from surgery service. She was given 0.5 mg IV Dilaudid for her discomfort. Impression & Plan Acute appendicitis Discharge Plan Visit Data Chief Complaint: Abdominal Pain Stated Complaint: ABD PAIN,NAUSEA ED Provider: Sam Garza Discharge Problem: Acute appendicitis Patient Disposition: Being Evaluated by Surgeon Forms Stand Alone Forms: [facility] Prescriptions Prescriptions: No Action chlorthalidone 25 mg Tablet 25 mg PO DAILY linagliptin 5 mg Tablet 5 mg PO DAILY metformin 500 mg Tablet 500 mg PO BID apremilast [Otezla] 30 mg Tablet 30 mg PO BID flaxseed oil 1,000 mg Capsule 1,000 mg PO DAILY multivitamin Tablet 1 tab PO DAILY biotin 1,000 mcg Tablet,Chewable 1,000 mcg PO DAILY calcium carbonate-vitamin D3 [Calcium 500 With D] 500 mg(1,250mg) -400 unit Tablet 1 tab PO BID Referrals Referrals: Ada Phipps MD [Primary Care Provider] -
[2022-04-16] MEDS ORDERED: PIPERACILLIN/TAZOBACTAM 4.5 GM/120 ML BAG IV ONE (15:18)
[2022-04-16] MEDS ORDERED: PIPERACILLIN/TAZOBACTAM 4.5 GM/120ML D5W IV ONE (15:26)
--- NOTE | 2022-04-16 15:35 | History & Physical Report ---
Date of Service April 16, 2022 Assessment & Plan (1) Acute appendicitis: Plan: Patient has classical symptoms for acute appendicitis further for documented by CT scan which showed acutely inflamed appendix nonruptured Treatment of acute appendicitis was explained to the patient including nonoperative management with antibiotics although not recommended completely of anyone older than 40 years old for was like incidence of carcinoma and cycling recurrence rate as high as 20% x 4 she wants like to proceed for laparoscopic appendectomy possible open risk and complication were explained to patient including bleeding infection injury to other organs Plan Surgery was notified and booked for laparoscopic appendectomy possible open Antibiotics have been ordered preoperatively Sequential compression stockings ordered EKG noted showed questionable [place] the patient has never had any chest pain and was never told this in the past Permit signed all question answered History of Present Illness Primary Care Provider: Ada Phipps MD This pleasant 66-year-old female who has had multiple surgeries including laparoscopic cholecystectomy abdominoplasty x2 right hip prosthesis history of stroke of unknown etiology started experience some abdominal discomfort last evening that started around the [facility] where she states she always has a lump since she has had plastic surgery but eventually went down to the lower abdomen in the midline she was nauseated but did not vomit this morning pain was still present she took 2 crackers at about 9:00 and decided to come into the emergency room to be evaluated but was found CT scan showed acute appendicitis and we were asked to see the patient Allergies Allergy/AdvReac Type Severity Reaction Status Date / Time clarithromycin Allergy Intermediate RASH, Verified 04/22/18 17:01 TREMORS, SHAKINESS Egg Derived Allergy Intermediate Rash Verified 04/22/18 13:23 atenolol Allergy Unknown cp Verified 04/22/18 13:23 elevated bp muscles contract/spasm valsartan Allergy Unknown unable to Verified 04/22/18 13:23 stand,bad headache diphenhydramine AdvReac Intermediate ANTIHISTAMINES Verified 04/22/18 13:23 - ELEVATE BP morphine AdvReac Intermediate LOW BP, Verified 04/22/18 13:23 "CARDIAC PROBLEMS" Sulfa (Sulfonamide AdvReac Intermediate hypertension, Verified 04/22/18 17:01 Antibiotics) shakiness Penicillins AdvReac Mild STIFF Verified 04/22/18 13:23 NECK, SEVERE NAUSEA Home Medications Medication Instructions Recorded Confirmed Type apremilast 30 mg tablet (Otezla) 30 mg PO BID 04/17/18 04/22/18 History biotin 1,000 mcg chewable tablet 1,000 mcg PO DAILY 04/17/18 04/22/18 History calcium carbonate 500 mg-vitamin 1 tab PO BID 04/17/18 04/22/18 History D3 10 mcg (400 unit) tablet (Calcium 500 With D) chlorthalidone 25 mg tablet 25 mg PO DAILY 04/17/18 04/22/18 History flaxseed oil 1,000 mg capsule 1,000 mg PO DAILY 04/17/18 04/22/18 History linagliptin 5 mg tablet 5 mg PO DAILY 04/17/18 04/22/18 History metformin 500 mg tablet 500 mg PO BID 04/17/18 04/22/18 History multivitamin 1 tab PO DAILY 04/17/18 04/22/18 History Past Med/Surg History Medical History CVA (cerebral vascular accident) Diabetes DM type 2 (diabetes mellitus, type 2) Dyslipidemia Hyperlipidemia Hypertension Hypertension Psoriasis Surgical History H/O sinus surgery H/O tubal ligation History of cholecystectomy History of total left knee replacement History of total right hip replacement Family History Mother Breast cancer Diabetes Social History Smoking Status: Never smoker Hx Alcohol Use: Yes Alcohol type: wine and hard liquor Hx Substance Use: No Preferred Language: Swedish Communication Ability: Effective Visual Impairment: No Limitations Head Mechanic Required: No Beliefs That Will Affect Care: None marital status: Current Living Situation: Spouse Feels Safe at Home: Yes Assistive Devices: None Physical Exam Physical Exam: Patient is alert coherent in no discomfort laying flat in bed sclera is nonicteric evidence of plastic surgery noted around her eyelids bilaterally No cervical lymphadenopathy patient had carotid Doppler and CTAs approximately 2 years ago that showed no carotid disease Lungs no audible wheezing or crackles heart regular rate no murmurs or gallop The abdomen showed T-type of incision for abdominoplasty no appreciable hernias appreciated the patient does have tenderness and rebound localized to McBurney's point Results & Data Results & Data ([facility]) Vital Signs (Past 12 Hours) Vital Signs Temp Pulse Resp BP Pulse Ox O2 Del Method 04/16/22 14:50 96 04/16/22 14:40 99 04/16/22 14:30 96 04/16/22 14:30 146/92 H 04/16/22 14:20 99 04/16/22 14:10 99 04/16/22 14:09 99 04/16/22 12:15 37.0 C 96 H 16 129/83 96 Room Air Laboratory Results Noted Diagnostic Findings Noted CT scan PG Care Time/CCT Total # of Minutes Spent Total Time Spent with Patient: Total time spent is greater than 50% in coordination of care (as documented) at patient's floor/unit and/or counseling patient: Coding Level of Care Code None Diagnoses Acute appendicitis K35.80
[2022-04-16] MEDS ORDERED: PROPOFOL IV EMULSION 10 MG/ML 20 ML VIAL IV ONE (15:37)
[2022-04-16] MEDS ORDERED: fentaNYL citrate 100 MCG/2 ML VIAL ONE ×3 (15:37→17:31)
[2022-04-16] MEDS ORDERED: ROCURONIUM BROMIDE 10 MG/ML 5 ML VIAL IV ONE (15:37)
[2022-04-16] MEDS ORDERED: MIDAZOLAM HCL 1 MG/ML 2ML VIAL ONE (15:37)
[2022-04-16] MEDS ORDERED: GLYCOPYRROLATE 0.2 MG/ML VIAL ONE (15:43)
[2022-04-16] MEDS ORDERED: NEOSTIGMINE METHYLSULFATE 1 MG/ML 10ML VIAL ONE (15:43)
[2022-04-16] MEDS ORDERED: ONDANSETRON INJ 2 MG/ML 2 ML VIAL IV PRN (16:59)
[2022-04-16] MEDS ORDERED: ATROPINE SULFATE 0.1 MG/ML 10ML SYR IV PRN (16:59)
[2022-04-16] MEDS ORDERED: fentaNYL citrate 100 MCG/2 ML VIAL IV PRN (16:59)
[2022-04-16] MEDS ORDERED: ePHEDrine sulfate 50 MG/ML AMP IV PRN (16:59)
[2022-04-16] MEDS ORDERED: HYDROmorphone INJ 2 MG/ML SYR/VIAL IV PRN (16:59)
--- NOTE | 2022-04-16 16:59 | Anesthesiology Consultation ---
Date of Service April 16, 2022 Assessment & Plan ASA ASA3 Proposed Anesthesia Anesthesia Type: General Risk / Benefits Reviewed With: PT / POA / Parent / Guardian, Accepts Plan and Informed Consent Obtained Additional Comments: ekg showed possible inferior infarct in past. pt able to climb a flight a stairs without issue. no swelling or activity limitations History Surgery Operation Date: 04/16/22 16:00 Proposed Procedures p Laparoscopic Appendectomy - Mani Saldaña MD, FACS Height/Weight Height: 5 ft 9 in Weight: 93.3 kg Allergies Allergy/AdvReac Type Severity Reaction Status Date / Time clarithromycin Allergy Intermediate RASH, Verified 04/22/18 17:01 TREMORS, SHAKINESS Egg Derived Allergy Intermediate Rash Verified 04/22/18 13:23 atenolol Allergy Unknown cp Verified 04/22/18 13:23 elevated bp muscles contract/spasm valsartan Allergy Unknown unable to Verified 04/22/18 13:23 stand,bad headache diphenhydramine AdvReac Intermediate ANTIHISTAMINES Verified 04/22/18 13:23 - ELEVATE BP morphine AdvReac Intermediate LOW BP, Verified 04/22/18 13:23 "CARDIAC PROBLEMS" Sulfa (Sulfonamide AdvReac Intermediate hypertension, Verified 04/22/18 17:01 Antibiotics) shakiness Penicillins AdvReac Mild STIFF Verified 04/22/18 13:23 NECK, SEVERE NAUSEA Medications Home Medications Medication Instructions Recorded Confirmed Last Taken apremilast 30 mg tablet (Otezla) 30 mg PO BID 04/17/18 04/22/18 04/22/18 biotin 1,000 mcg chewable tablet 1,000 mcg PO DAILY 04/17/18 04/22/18 04/21/18 calcium carbonate 500 mg-vitamin 1 tab PO BID 04/17/18 04/22/18 04/21/18 D3 10 mcg (400 unit) tablet (Calcium 500 With D) chlorthalidone 25 mg tablet 25 mg PO DAILY 04/17/18 04/22/18 04/21/18 flaxseed oil 1,000 mg capsule 1,000 mg PO DAILY 04/17/18 04/22/18 04/21/18 linagliptin 5 mg tablet 5 mg PO DAILY 04/17/18 04/22/18 04/21/18 metformin 500 mg tablet 500 mg PO BID 10/04/22/18 04/22/18 multivitamin 1 tab PO DAILY 04/17/18 04/22/18 04/21/18 NPO Date Last Intake of Fluids: 04/16/22 Time Last Intake of Fluids: 09:10 Date Last Intake of Solids: 04/16/22 Time Last Intake of Solids: 09:10 Past Medical History Medical History CVA (cerebral vascular accident) Diabetes DM type 2 (diabetes mellitus, type 2) Dyslipidemia Hyperlipidemia Hypertension Hypertension Psoriasis Exercise / Class Metabolic Activity II 4-5 Yardwork/Stairs/Walk up hill Past Family History Family History Mother Breast cancer Diabetes Past Surgical History Surgical History H/O sinus surgery H/O tubal ligation History of cholecystectomy History of total left knee replacement History of total right hip replacement Past Anesthesia History No Hx of Anesthesia Complications and No Family Hx of Anesthesia Complications History of PONV No Hx of PONV and No Hx of Motion Sickness Social History Smoking Status: Never smoker Hx Alcohol Use: Yes Alcohol type: wine and hard liquor alcohol intake frequency: a few times a month Hx Substance Use: No Review of Systems denies fever/cough/ colds/ chest pain/ SOB/ TOMAS denies TOMAS Physical Exam Vital Signs Last Vital Signs Temp 37.0 C 04/16/22 12:15 Pulse 96 H 04/16/22 12:15 Resp 16 04/16/22 12:15 BP 146/92 H 04/16/22 14:30 Pulse Ox 96 04/16/22 14:50 O2 Del Method 04/16/22 12:15 ENMT Mouth: no TMJ abnormality and no dentition abnormality Thyromental Distance: > or= 3.5 Finger Breadths Mallampati Class: II Mouth / Teeth: 1. broken Neck neck extension not limited Respiratory normal respiratory effort; no respiratory distress Auscultation: lungs clear to auscultation bilaterally Cardiovascular Rate/Rhythm: regular rate and regular rhythm Neurologic moves all extremities Psychiatric Orientation: alert and oriented x 3 Testing Laboratory Results 04/16/22 12:28 04/16/22 12:28
[2022-04-16] MEDS ORDERED: ePHEDrine sulfate 50 MG/ML AMP ONE (17:20)
[2022-04-16] MEDS ORDERED: DEXAMETHASONE SOD INJ 4 MG/ML VIAL ONE (17:32)
[2022-04-16] MEDS ORDERED: KETOROLAC 30 MG/ML VIAL ONE (17:32)
[2022-04-16] MEDS ORDERED: ONDANSETRON INJ 2 MG/ML 2 ML VIAL ONE (17:32)
--- NOTE | 2022-04-16 18:16 | Post Operative Brief Note ---
PG Immediate Post Op with CF Date of Surgery April 16, 2022 Pre & Post Diagnosis Operation Date: 04/16/22 16:00 Pre-Op Diagnosis: Acute Appendicitis Post-Op Diagnosis: Acute Appendicitis I identified the patient and participated in the time-out.: Yes Procedure Operation Date: 04/16/22 16:00 Actual Procedures p Laparoscopic Appendectomy - Mani Saldaña MD, FACS Surgeon Mani Saldaña MD, FACS Consultants Intern 0 Estimated Blood Loss 5 Findings Consistent with Post-Op Diagnosis Specimens Specimen Description: A. Appendix
[2022-04-16] MEDS ORDERED: LIDOCAINE/EPINEPHRINE 1% 20 ML VIAL INJ ONE (18:30)
--- NOTE | 2022-04-16 18:46 | Operative Report ---
PG Post Operative Report Pre & Post Diagnosis Operation Date: 04/16/22 16:00 Pre-Op Diagnosis: Acute Appendicitis Post-Op Diagnosis: Acute Appendicitis I identified the patient and participated in the time-out.: Yes Procedure Operation Date: 04/16/22 16:00 Actual Procedures p Laparoscopic Appendectomy - Mani Saldaña MD, FACS The patient was brought into the operating theater supine position general endotracheal anesthesia the abdomen was prepped Betadine solution properly draped systemic antibiotics on board timeout was had patient identified with a small transverse incision above the umbilical area away from the umbilicus itself since the patient had an abdominoplasty sufficientfor Veress needle followed by CO2 followed by 5 mm trocar point of entry specter no injury identified placed a 5 mm scope was visualized that the patient had some adhesions to the lower midline and of the abdomen with identify the cecum could not identify the appendix at this point placed a 5 mm right upper quadrant trocar with preemptive local analgesic elevated the cecum was still could not identify the appendix we did place the camera in right upper quadrant trocar and actually proceed that we initially went in with the supraumbilical trocar there was some adhesions to the anterior abdominal wall these were omental adhesions abdomen surrounding that area but there was a space between the left lower quadrant and the right lower quadrant. Therefore under direct visualization I placed a 5 mm trocar fci between the symphysis pubis and umbilical area but the camera placed in the port using the umbilical and supra right upper quadrant trocar was able to elevate the cecum removed identify the base of the appendix which we dissected out creating a window between the appendix and the mesoappendix using a DEMETRIS stapler purple we were able to divide the appendix off the cecum leaving no appendiceal tissue then we elevated the tip of the appendix which was acutely inflamed nonruptured had fibrinous exudate we freed it from these appendix using clips. Hemostasis was excellent we will place the appendix in the Endo Catch and took it out through the supraumbilical port which had been converted from a 5 to a 12. Millimeter the right lower quadrant was irrigated suctioned out as was the pelvis hemostasis was excellent therefore we placed the camera right upper quadrant trocar again visualized the supraumbilical in the left lower quadrant there was no bleeding as we remove the trochars and last remove the right upper quadrant trocar fascial stick [id number] was used for supraumbilical opening the rest 4-0 Monocryl Steri-Strips applied procedure was tolerated well by the patient estimated blood loss 5 cc Surgeon Mani Saldaña MD, FACS Wood Scaler 0 Estimated Blood Loss 5 Findings Consistent with Post-Op Diagnosis Acute nonruptured appendix Specimens Appendix Complications Hard to do surgery laparoscopic surgery with this current irrigating system Indications Right lower quadrant pain findings clinically and radiographically acute appendicitis Description of Procedure merda I attest to the content of the Intraoperative Record and any orders documented therein. Any exceptions are noted below.
--- NOTE | 2022-04-16 19:02 | Anesthesiology Progress Note ---
Date of Service April 16, 2022 Anesthesia Post Procedure Vital Signs Vital Signs: Temp Pulse Pulse Resp BP BP Pulse Ox 04/16/22 18:50 97 H 14 150/81 H 93 04/16/22 18:40 36.3 C L 99 H 15 144/85 H 92 04/16/22 14:50 96 04/16/22 14:40 99 04/16/22 14:30 96 04/16/22 14:30 146/92 H 04/16/22 14:20 99 04/16/22 14:10 99 04/16/22 14:09 99 04/16/22 12:15 37.0 C 96 H 16 129/83 96 O2 Del Method O2 Flow Rate 04/16/22 18:50 Oxymask 4 04/16/22 18:40 Oxymask 4 04/16/22 14:50 04/16/22 14:40 04/16/22 14:30 04/16/22 14:30 04/16/22 14:20 04/16/22 14:10 04/16/22 14:09 04/16/22 12:15 Room Air Transfer of Care Handoff Completed per policy Notes Mental Status: alert / awake / arousable and participated in evaluation Patient Amnestic to Procedure: Yes Nausea / Vomiting: adequately controlled Pain: adequately controlled Airway Patency, RR, SpO2: stable & adequate BP & HR: stable & adequate Hydration State: stable & adequate Anesthetic Complications: no major complications apparent and Pt Satisfied with anesthetic care
[2022-04-16] MEDS: LACTATED RINGER'S 1,000 ML IV SCH (20:33)
[2022-04-16] MEDS ORDERED: GLUCOSE 40% GEL 15 GM TUBE PO PRN (21:00)
[2022-04-16] MEDS ORDERED: GLUCOSE 10 TAB/TUBE PO PRN (21:00)
[2022-04-16] MEDS ORDERED: DEXTROSE 50% 50 ML SYRINGE IV PRN (21:00)
[2022-04-16] MEDS ORDERED: CARBOHYDRATES FOR HYPOGLYCEMIA PO PRN (21:00)
[2022-04-16] MEDS ORDERED: GLUCAGON FOR INJ 1 MG VIAL IM PRN (21:00)
[2022-04-16] MEDS: PIPERACILLIN/TAZOBACTAM 3.375 GM in DEXTROSE 5% 100 ML IV SCH (22:09)
[2022-04-16] MEDS: INSULIN ASPART PER UNIT SC SCH (22:09)
[2022-04-16] MEDS: HYDROCODONE/ACETAMOPHEN 5/325MG TAB PO PRN (22:12)
[2022-04-17] MEDS: PIPERACILLIN/TAZOBACTAM 3.375 GM in DEXTROSE 5% 100 ML IV SCH (03:57)
[2022-04-17] MEDS: LACTATED RINGER'S 1,000 ML IV SCH (04:04)
[2022-04-17] MEDS: HYDROCODONE/ACETAMOPHEN 5/325MG TAB PO PRN (04:09)
[2022-04-17 04:29] LABS: Appearance Urine Clear (Clear); Bacteria Urine Automated Negative (Negative); Bilirubin Urine Negative (Negative); Blood Urine Negative (Negative); Cast Urine Automated 0 /lpf (0-5); Color Urine Yellow; Epithelial Cell Urine Auto 20-30 /lpf (0-5); Glucose Urine UA Negative (Negative); Ketones Urine Negative (Negative); Leukocyte Esterase Urine Trace (Negative); Nitrite Urine Negative (Negative); Protein Urine Negative (Negative); RBC Urine Automated 0-4 /hpf (0-4); Specific Gravity Urine 1.011 (1.000-1.030); Urobilinogen Urine Negative (Negative)
--- NOTE | 2022-04-17 04:52 | Surgery Progress Note ---
Date of Service April 17, 2022 Assessment & Plan (1) Acute appendicitis: Plan: Status post appendectomy on 04/16/2022 (postop day #1) Continue analgesics Continue antiemetics Increase mobilization Continue antibiotics in form of Zosyn while inpatient Continue IV fluids until certain oral intake is adequate We will consider advancing to solid food today and if tolerated may consider discharge home. Admission and Anticipated Discharge Date Admission Date: April 16, 2022 Subjective Patient is resting comfortably in bed. She denies any nausea or vomiting. She notes she is tolerating clear liquids without difficulty. She denies minimal abdominal pain. She notes that she feels hungry and wishes to try solid food. Physical Exam Gastrointestinal (Abdomen): Abdomen is soft, nondistended, with minimal tenderness to palpation near surgical incisions. And surgical incisions are clean, dry, intact. Bowel sounds are present. Results & Data ([facility]) Vital Signs (Past 12 Hours) Vital Signs Temp Pulse Pulse Resp BP Pulse Ox O2 Del Method 04/17/22 04:00 36.8 C 82 20 110/72 94 Nasal Cannula 04/16/22 19:40 Nasal Cannula 04/16/22 19:40 36.9 C 98 H 16 154/89 H 93 Nasal Cannula 04/16/22 22:30 36.7 C 97 H 18 133/84 95 Room Air 04/16/22 21:41 36.4 C L 97 H 18 136/87 96 Nasal Cannula 04/16/22 20:41 36.5 C 93 H 18 105/71 95 Nasal Cannula 04/16/22 20:10 36.7 C 92 H 18 155/95 H 94 Nasal Cannula 04/16/22 19:20 91 H 13 144/94 H 94 Nasal Cannula 04/16/22 19:10 90 13 141/80 H 95 Oxymask 04/16/22 19:00 36.9 C 92 H 14 160/78 H 93 Oxymask 04/16/22 18:50 97 H 14 150/81 H 93 Oxymask 04/16/22 18:40 36.3 C L 99 H 15 144/85 H 92 Oxymask O2 Flow Rate 04/17/22 04:00 2 04/16/22 19:40 2 04/16/22 19:40 2 04/16/22 22:30 04/16/22 21:41 2 04/16/22 20:41 2 04/16/22 20:10 2 04/16/22 19:20 2 04/16/22 19:10 4 04/16/22 19:00 4 04/16/22 18:50 4 04/16/22 18:40 4 PG Care Time/CCT Total # of Minutes Spent Total Time Spent with Patient: Total time spent is greater than 50% in coordination of care (as documented) at patient's floor/unit and/or counseling patient: Coding Level of Care Code None Diagnoses Acute appendicitis K35.80
--- NOTE | 2022-04-17 07:09 | Electrocardiogram Report ---
Test Reason : Blood Pressure : / mmHG Vent. Rate : 087 BPM Atrial Rate : 087 BPM P-R Int : 152 ms QRS Dur : 090 ms QT Int : 404 ms P-R-T Axes : 052 -07 072 degrees QTc Int : 486 ms Normal sinus rhythm possible Inferior infarct , age undetermined Abnormal ECG When compared with ECG of 22-APR-2018 11:31, Inferior infarct is now Present Confirmed by Koby Charlton ([id number]) on 04/17/2022 7:08:43 AM Referred By: REFERRED SELF Confirmed By:Forest Charlton
[2022-04-17] MEDS ORDERED: Flu Vaccine (Flucelvax) 0.5mL SYR **Egg-Free IM ONE (09:00)
[2022-04-17] MEDS: INSULIN ASPART PER UNIT SC SCH (09:53)
--- NOTE | 2022-04-18 19:12 | Discharge Summary ---
Date of Service April 18, 2022 Admission HPI Per Admitting Provider This pleasant 66-year-old female who has had multiple surgeries including laparoscopic cholecystectomy abdominoplasty x2 right hip prosthesis history of stroke of unknown etiology started experience some abdominal discomfort last evening that started around the [facility] where she states she always has a lump since she has had plastic surgery but eventually went down to the lower abdomen in the midline she was nauseated but did not vomit this morning pain was still present she took 2 crackers at about 9:00 and decided to come into the emergency room to be evaluated but was found CT scan showed acute appendicitis and we were asked to see the patient Discharge Data Procedures Performed Operation Date: 04/16/22 16:00 Actual Procedures p Laparoscopic Appendectomy - Mani Saldaña MD, [facility] Hospital Course (1) Acute appendicitis: This is a 66-year-old female who presented to [facility] emergency department on 04/16/2022 secondary to abdominal pain. Clinical presentation and imaging are consistent with acute appendicitis so on day of admission Dr. Saldaña took the patient to the operating room and performed a laparoscopic appendectomy. Postoperatively the patient had an uneventful hospital course. Her diet was advanced in the appropriate fashion which she tolerated. She was deemed stable for discharge home on postop day #1 which was 04/17/2022. She was given appropriate instructions on wound care, diet, and activity. She was told to follow-up with the [facility] general surgery office in 1 to 2 weeks. Coding Level of Care Code None Diagnoses Acute appendicitis K35.80
== END 2022-04-17 12:27 | disposition home or self-care (01) | DRG 343 ==
LOC: ED 12:05 → INTOOBSV 18:49 → OR 19:00 → 3E 19:01